=== PATIENT | female | born 1965 | race Two or more races ===

== ENCOUNTER 2023-08-07 14:58 | Emergency (ER) | payer OTHER ==
[~2023-08-07] VITALS: Ht 170.2 cm; Wt 86.2 kg
[2023-08-07 16:42] LABS: HEMATOCRIT 42.8 % (36.0-45.00); HEMOGLOBIN 14.1 g/dL (12.0-15.00); MEAN CELL VOLUME 74.3 fL (80.00-100.00); MEAN CORPUSCULAR HEMOGLOBIN 24.4 pg (27.00-32.0); MEAN CORPUSCULAR HGB CONC 32.9 g/dl (32.0-36.0); PLATELET COUNT 307 K/uL (150-450); RED BLOOD COUNT 5.76 M/uL (4.00-6.00); RED CELL DISTRIBUTION WIDTH 15.1 % (11.5-14.5)
[2023-08-07 18:26] LABS: CALCIUM 8.9 mg/dL (8.5-10.1); CREATININE SERUM 0.84 mg/dL (0.55-1.02); GFR 70.39; POTASSIUM 3.78 mEq/L (3.5-5.1)
== END 2023-08-07 18:32 | disposition home or self-care (01) ==
LOC: ER 14:59
PROVIDERS: General Practice
DX: T65.891A Toxic effect of other specified substances, accidental (unintentional), initial encounter (principal); T20.47XA Corrosion of unspecified degree of neck, initial encounter; T22.432A Corrosion of unspecified degree of left upper arm, initial encounter; T21.41XA Corrosion of unspecified degree of chest wall, initial encounter; Y93.89 Activity, other specified; Y92.012 Bathroom of single-family (private) house as the place of occurrence of the external cause; Y99.9 Unspecified external cause status